=== PATIENT | male | born 1975 | race Caucasian/White ===

== ENCOUNTER 2024-10-18 08:51 | Outpatient (CLI) | payer BC | END 2024-10-18 08:52 | disposition home or self-care (01) | LOC: CSHLAB 08:51 | PROVIDERS: ATTEND Otolaryngology Plastic Surgery within the Head & Neck | DX: Z01.818 Encounter for other preprocedural examination (principal); J38.2 Nodules of vocal cords | CPT/HCPCS: 93005; 93010 ==

== ENCOUNTER 2024-10-25 06:39 | Day surgery (SDC) | payer BC ==
[2024-10-18 09:29] VITALS: BMI 24.4
[2024-10-25] MEDS ORDERED: Propofol 1,000 MG/100 ML VIAL IV ONE (08:19)
[2024-10-25] MEDS ORDERED: EPINEPHrine 1 MG/ML VIAL ONE (08:23)
[2024-10-25] MEDS ORDERED: PROPOFOL 20 ML ONE (08:28)
[2024-10-25] MEDS ORDERED: fentaNYL 50 mcg/mL 1 mL Vial ONE ×2 (08:29→09:52)
[2024-10-25] MEDS ORDERED: Lidocaine 1% PF 5 ML VIAL ONE (08:29)
[2024-10-25] MEDS ORDERED: Dexamethasone 20 MG/5 ML VIAL ONE (08:29)
[2024-10-25] MEDS ORDERED: Ondansetron PF 4 MG/2 ML Vial ONE (08:29)
[2024-10-25] MEDS ORDERED: Midazolam HCl 2 mg/2 ml Vial ONE (08:29)
[2024-10-25] MEDS ORDERED: Glycopyrrolate 0.2 MG/ML 5 ML SYRINGE ONE (08:43)
[2024-10-25] MEDS ORDERED: Labetalol HCl 100 MG/20 ML VIAL ONE (09:29)
== END 2024-10-25 10:55 | disposition home or self-care (01) ==
LOC: CSHSDC 06:39
PROVIDERS: ATTEND Otolaryngology Plastic Surgery within the Head & Neck
PROC: 0CBS8ZX Excision of Larynx, Via Natural or Artificial Opening Endoscopic, Diagnostic (ICD-10-PCS; principal; 2024-10-25)
DX: C32.0 Malignant neoplasm of glottis (principal); J38.2 Nodules of vocal cords; R49.0 Dysphonia; Z87.891 Personal history of nicotine dependence; Z79.899 Other long term (current) drug therapy
CPT/HCPCS: 88305; 88331; J0171; J1100; J2250; J2405; J2704; J3010